=== PATIENT | male | born 1950 | race Caucasian/White ===

== ENCOUNTER 2025-11-16 10:29 | Emergency (ER) | payer MEDICARE ==
[2025-11-16] MEDS ORDERED: Acetaminophen 500 MG TAB ONE (11:00)
[2025-11-16] MEDS ORDERED: Ketorolac Tromethamine 30 MG (1 mL) VIAL ONE (11:46)
== END 2025-11-16 13:02 | disposition home or self-care (01) ==
LOC: CSHERS 10:29
DX: J10.1 Influenza due to other identified influenza virus with other respiratory manifestations (principal); I10 Essential (primary) hypertension
CPT/HCPCS: 71046; 87428; J1885; 96372